=== PATIENT | female | born 1985 | race Caucasian/White ===

== ENCOUNTER 2017-09-14 13:40 | Inpatient (IN) ==
[2017-09-14] MEDS ORDERED: PANTOPRAZOLE 40 MG VIAL IV STA (14:18)
[2017-09-14] MEDS ORDERED: ONDANSETRON 4 MG/2 ML VIAL IV STA (14:18)
[2017-09-14] MEDS ORDERED: SODIUM CHLORIDE 0.9% 2,000 ML IV STA (14:18)
[2017-09-14] MEDS ORDERED: LOPERAMIDE 2 MG CAPSULE PO STA (14:18)
[2017-09-14] MEDS ORDERED: DICYCLOMINE 20 MG/2 ML AMP IM ONE ×2 (14:18→15:19)
[2017-09-14 15:10] LABS: Basophils % 0.3 % (0.0-0.8); Eosinophils % 0.7 % (0.00-10.9); Hematocrit 33.1 VOL% (35.7-47.0); Hemoglobin 11.1 GM/DL (12.0-16.0); Immature Granulocytes % 0.3 %; Immature Granulocytes Absolute 0.01 #; Lymphocytes # 0.8 10*3/uL (1.4-4.0); Lymphocytes % 28.8 % (21.3-54.2); Mean Corpuscular HGB Conc 33.5 GM/DL (32-36); Mean Corpuscular Hemoglobin 30 PG (27-34); Mean Corpuscular Volume 89.5 FL (87-102); Mean Platelet Volume 10.4 FL (9.6-12.0); Monocytes # 0.2 10*3/uL (0.11-0.8); Monocytes % 7.5 % (1.7-12.7); Neutrophils # 1.8 10*3/uL (1.4-7.4); Neutrophils % 62.4 % (38.7-73.9); Platelet Count 214 T/CUMM (130-400); Red Cell Distribution Width 12.8 % (9.3-17.3); White Blood Count 2.9 T/CUMM (4-12)
[2017-09-14] MEDS ORDERED: ONDANSETRON 4 MG/2 ML VIAL ONE (15:19)
[2017-09-14] MEDS ORDERED: LOPERAMIDE 2 MG CAPSULE ONE (15:19)
[2017-09-14] MEDS ORDERED: PANTOPRAZOLE 40 MG VIAL IV ONE (15:19)
[2017-09-14 15:20] LABS: INR 1.1; PT Patient Result 11.7 SECS; Partial Thromboplastin Time 25.9 SECS (0-40)
[2017-09-14 15:39] LABS: Alanine Aminotransferase 10 U/L (13-56); Albumin 3.6 G/DL (3.4-5.0); Alkaline Phosphatase 41 U/L (45-117); Amylase 47 U/L (25-115); Aspartate Amino Transferase 15 U/L (0-37); Blood Urea Nitrogen 15 MG/DL (7-18); Calcium 8.4 MG/DL (8.5-10.1); Glucose 98 MG/DL (74-106); Osmolality,Calculated 279.4 MOS/KG (273-304); Potassium 3.6 MMOL/L (3.5-5.1); Sodium 140 MMOL/L (136-145); Total Protein 6.4 G/DL (6.4-8.3); Troponin I Only < 0.015 NG/ML (0.00-0.045)
[2017-09-14 16:25] LABS: Apearance,Urine CLOUDY (Clear); Bilirubin,Urine Negative (Negative); Blood, Urine Negative (Negative); Glucose,Urine (UA) Negative (Negative); Ketones,Urine 20 mg/dL (Negative); Mucus,Urine Many /LPF (Occasional); Nitrite,Urine Negative (Negative); Protein,Urine 30 MG/DL; Squamous Epithelial Cell,Urine Occasional /HPF (0-10); Urine Color Dark yellow (Yellow); Urine Specific Gravity 1.033 (1.001-1.035); Urine Urobilinogen < 2.0 EU/DL (0.2-1.0); WBC,Urine 4 /HPF (0-6)
[2017-09-14] MEDS ORDERED: PROMETHAZINE 25 MG/1 ML VIAL IM PRN (20:52)
[2017-09-14] MEDS ORDERED: LOPERAMIDE 2 MG CAPSULE PO PRN (20:52)
[2017-09-14] MEDS ORDERED: ACETAMINOPHEN 325 MG TABLET PO PRN (20:52)
[2017-09-14] MEDS ORDERED: cloNIDine 0.1 MG TABLET PO PRN (20:52)
[2017-09-14] MEDS: SODIUM CHLORIDE 0.9% 1,000 ML IV SCH (20:55)
[2017-09-14] MEDS: tiZANidine 4 MG TABLET PO SCH (21:49)
[2017-09-14] MEDS: ZALEPLON 5 MG CAPSULE PO SCH ×2 (21:49→21:51)
[2017-09-14] MEDS: SERTRALINE 50 MG TABLET PO SCH (21:49)
[2017-09-14] MEDS: LEVOTHYROXINE 112 MCG TABLET PO SCH (21:49)
[2017-09-14] MEDS: ENOXAPARIN 40 MG/0.4 ML SYRINGE SUBCUT SCH (21:54)
[2017-09-14] MEDS: ONDANSETRON ODT 4 MG TABLET PO SCH (21:56)
[2017-09-14] MEDS ORDERED: SODIUM CHLORIDE 0.9% 500 ML IV ONE (22:28)
[2017-09-15] MEDS: ONDANSETRON ODT 4 MG TABLET PO SCH ×4 (03:02→21:37)
[2017-09-15] MEDS: ONDANSETRON 4 MG/2 ML VIAL IV PRN ×4 (04:04→21:30)
[2017-09-15] MEDS: SODIUM CHLORIDE 0.9% 1,000 ML IV SCH ×4 (05:08→21:32)
[2017-09-15] MEDS: DICYCLOMINE 20 MG TABLET PO PRN ×2 (05:30→10:25)
[2017-09-15 06:33] LABS: Basophils % 0.5 % (0.0-0.8); Eosinophils # 0.1 10*3/uL (0.0-0.87); Eosinophils % 2.3 % (0.00-10.9); Immature Granulocytes % 0.5 %; Immature Granulocytes Absolute 0.01 #; Lymphocytes # 0.8 10*3/uL (1.4-4.0); Lymphocytes % 36.2 % (21.3-54.2); Mean Corpuscular HGB Conc 33.3 GM/DL (32-36); Mean Corpuscular Hemoglobin 29 PG (27-34); Mean Platelet Volume 10.6 FL (9.6-12.0); Monocytes # 0.2 10*3/uL (0.11-0.8); Neutrophils # 1.1 10*3/uL (1.4-7.4); Neutrophils % 53.5 % (38.7-73.9); Platelet Count 170 T/CUMM (130-400); Red Blood Count 3.41 MC/CUMM (3.8-5.5); Red Cell Distribution Width 12.7 % (9.3-17.3); White Blood Count 2.1 T/CUMM (4-12)
[2017-09-15 06:54] LABS: Microcytosis 1+; Platelet Estimate Adequate
[2017-09-15 07:07] LABS: Alanine Aminotransferase < 9 U/L (13-56); Albumin 3.1 G/DL (3.4-5.0); Alkaline Phosphatase 35 U/L (45-117); Aspartate Amino Transferase 15 U/L (0-37); Blood Urea Nitrogen 11 MG/DL (7-18); Calcium 7.6 MG/DL (8.5-10.1); Glucose 90 MG/DL (74-106); Osmolality,Calculated 284.8 MOS/KG (273-304); Potassium 3.4 MMOL/L (3.5-5.1); Sodium 144 MMOL/L (136-145); Total Protein 5.3 G/DL (6.4-8.3)
[2017-09-15] MEDS: PANTOPRAZOLE 40 MG TABLET PO SCH (08:25)
[2017-09-15] MEDS: CARISOPRODOL 350 MG TABLET PO PRN ×2 (12:06→17:08)
[2017-09-15] MEDS: POTASSIUM CHLORIDE 20 MEQ TABLET PO PRN ×2 (17:08→17:09)
[2017-09-15] MEDS: ZALEPLON 5 MG CAPSULE PO SCH ×2 (21:16→21:27)
[2017-09-15] MEDS: SERTRALINE 50 MG TABLET PO SCH (21:27)
[2017-09-15] MEDS: LEVOTHYROXINE 112 MCG TABLET PO SCH (21:27)
[2017-09-15] MEDS: tiZANidine 4 MG TABLET PO SCH (21:27)
[2017-09-15] MEDS: ENOXAPARIN 40 MG/0.4 ML SYRINGE SUBCUT SCH (21:28)
[2017-09-16] MEDS: ONDANSETRON ODT 4 MG TABLET PO SCH ×2 (03:29→08:09)
[2017-09-16] MEDS: SODIUM CHLORIDE 0.9% 1,000 ML IV SCH ×3 (05:43→21:16)
[2017-09-16 06:27] LABS: Basophils % 0.4 % (0.0-0.8); Eosinophils # 0.1 10*3/uL (0.0-0.87); Eosinophils % 2.2 % (0.00-10.9); Hematocrit 30.2 VOL% (35.7-47.0); Immature Granulocytes % 0.4 %; Immature Granulocytes Absolute 0.01 #; Lymphocytes # 0.8 10*3/uL (1.4-4.0); Lymphocytes % 35.6 % (21.3-54.2); Mean Corpuscular HGB Conc 33.1 GM/DL (32-36); Mean Corpuscular Hemoglobin 30 PG (27-34); Mean Corpuscular Volume 89.1 FL (87-102); Mean Platelet Volume 10.8 FL (9.6-12.0); Monocytes # 0.2 10*3/uL (0.11-0.8); Monocytes % 7.6 % (1.7-12.7); Neutrophils # 1.2 10*3/uL (1.4-7.4); Neutrophils % 53.8 % (38.7-73.9); Platelet Count 189 T/CUMM (130-400); Red Blood Count 3.39 MC/CUMM (3.8-5.5); White Blood Count 2.3 T/CUMM (4-12)
[2017-09-16 06:57] LABS: Macrocytosis Slight
[2017-09-16 07:02] LABS: Calcium 7.6 MG/DL (8.5-10.1); Osmolality,Calculated 281.8 MOS/KG (273-304); Potassium 3.7 MMOL/L (3.5-5.1)
[2017-09-16] MEDS: ONDANSETRON 4 MG/2 ML VIAL IV PRN (08:09)
[2017-09-16] MEDS: PANTOPRAZOLE 40 MG TABLET PO SCH (08:09)
[2017-09-16] MEDS: CARISOPRODOL 350 MG TABLET PO PRN ×2 (11:39→16:08)
[2017-09-16] MEDS ORDERED: ONDANSETRON ODT 4 MG TABLET PO PRN (12:26)
[2017-09-16] MEDS: DICYCLOMINE 20 MG TABLET PO PRN (12:55)
[2017-09-16] MEDS: tiZANidine 4 MG TABLET PO SCH (21:13)
[2017-09-16] MEDS: LEVOTHYROXINE 112 MCG TABLET PO SCH (21:13)
[2017-09-16] MEDS: SERTRALINE 50 MG TABLET PO SCH (21:13)
[2017-09-16] MEDS: ZALEPLON 5 MG CAPSULE PO SCH (21:15)
[2017-09-16] MEDS: ENOXAPARIN 40 MG/0.4 ML SYRINGE SUBCUT SCH (21:15)
[2017-09-17] MEDS: SODIUM CHLORIDE 0.9% 1,000 ML IV SCH ×3 (03:52→22:12)
[2017-09-17 06:49] LABS: Basophils % 0.8 % (0.0-0.8); Eosinophils # 0.1 10*3/uL (0.0-0.87); Eosinophils % 2.5 % (0.00-10.9); Hematocrit 30.3 VOL% (35.7-47.0); Hemoglobin 10.4 GM/DL (12.0-16.0); Immature Granulocytes % 0.4 %; Immature Granulocytes Absolute 0.01 #; Lymphocytes # 0.8 10*3/uL (1.4-4.0); Lymphocytes % 32.4 % (21.3-54.2); Mean Corpuscular HGB Conc 34.3 GM/DL (32-36); Mean Corpuscular Hemoglobin 30 PG (27-34); Mean Corpuscular Volume 87.1 FL (87-102); Monocytes # 0.2 10*3/uL (0.11-0.8); Monocytes % 8.4 % (1.7-12.7); Neutrophils # 1.3 10*3/uL (1.4-7.4); Neutrophils % 55.5 % (38.7-73.9); Platelet Count 195 T/CUMM (130-400); Red Blood Count 3.48 MC/CUMM (3.8-5.5); Red Cell Distribution Width 13.1 % (9.3-17.3); White Blood Count 2.4 T/CUMM (4-12)
[2017-09-17 07:19] LABS: Calcium 7.9 MG/DL (8.5-10.1); Osmolality,Calculated 283.8 MOS/KG (273-304); Potassium 3.4 MMOL/L (3.5-5.1)
[2017-09-17] MEDS ORDERED: KETOROLAC 30 MG/1 ML VIAL IV ONE (07:23)
[2017-09-17 07:33] LABS: Anisocytosis Slight; Ovalocytes Slight
[2017-09-17 07:34] LABS: Macrocytosis Slight; Platelet Estimate Adequate
[2017-09-17 07:35] LABS: Hypochromasia Slight; Microcytosis Slight
[2017-09-17] MEDS: PANTOPRAZOLE 40 MG TABLET PO SCH ×3 (09:24→12:56)
[2017-09-17] MEDS ORDERED: ONDANSETRON 4 MG/2 ML VIAL ONE (10:43)
[2017-09-17] MEDS ORDERED: ONDANSETRON 4 MG/2 ML VIAL IV ONE (10:45)
[2017-09-17] MEDS: POTASSIUM CHLORIDE 20 MEQ TABLET PO PRN ×3 (12:23→16:45)
[2017-09-17] MEDS: DICYCLOMINE 20 MG TABLET PO PRN (12:23)
[2017-09-17] MEDS: CARISOPRODOL 350 MG TABLET PO PRN ×2 (12:28→16:50)
[2017-09-17] MEDS: PROMETHAZINE 25 MG TABLET PO PRN ×2 (14:35→22:13)
[2017-09-17] MEDS ORDERED: PROPOFOL 200 MG/20 ML VIAL IV ONE (15:24)
[2017-09-17] MEDS ORDERED: LIDOCAINE 1% 5 ML VIAL ONE (15:24)
[2017-09-17] MEDS: ENOXAPARIN 40 MG/0.4 ML SYRINGE SUBCUT SCH (21:10)
[2017-09-17] MEDS: SERTRALINE 50 MG TABLET PO SCH (22:12)
[2017-09-17] MEDS: LEVOTHYROXINE 112 MCG TABLET PO SCH (22:13)
[2017-09-17] MEDS: ZALEPLON 5 MG CAPSULE PO SCH (22:13)
[2017-09-17] MEDS: tiZANidine 4 MG TABLET PO SCH (22:13)
[2017-09-18] MEDS ORDERED: CLINDAMYCIN INJ 900 MG in PREMIX 1 EACH IV ONE (06:00)
[2017-09-18] MEDS: PANTOPRAZOLE 40 MG TABLET PO SCH ×2 (06:11→09:10)
[2017-09-18] MEDS ORDERED: LIDOCAINE 1%/EPI INJ 20 ML VIAL ONE (06:17)
[2017-09-18] MEDS ORDERED: TISSUE ADHESIVE 1 EACH APPLICATOR TOP ONE (06:17)
[2017-09-18] MEDS ORDERED: BUPIVACAINE 0.25% 50 ML VIAL ONE (06:17)
[2017-09-18] MEDS ORDERED: SCOPOLAMINE 1.5 MG PATCH TRANSDERM ONE (06:31)
[2017-09-18 06:39] LABS: Basophils % 0.3 % (0.0-0.8); Hematocrit 34.6 VOL% (35.7-47.0); Hemoglobin 11.3 GM/DL (12.0-16.0); Immature Granulocytes % 0.3 %; Immature Granulocytes Absolute 0.01 #; Lymphocytes # 1.1 10*3/uL (1.4-4.0); Lymphocytes % 28.4 % (21.3-54.2); Mean Corpuscular HGB Conc 32.7 GM/DL (32-36); Mean Corpuscular Hemoglobin 30 PG (27-34); Mean Corpuscular Volume 90.8 FL (87-102); Mean Platelet Volume 11.1 FL (9.6-12.0); Monocytes # 0.2 10*3/uL (0.11-0.8); Monocytes % 5.7 % (1.7-12.7); Neutrophils # 2.5 10*3/uL (1.4-7.4); Neutrophils % 64.3 % (38.7-73.9); Platelet Count 231 T/CUMM (130-400); Red Blood Count 3.81 MC/CUMM (3.8-5.5); Red Cell Distribution Width 13.3 % (9.3-17.3); White Blood Count 3.9 T/CUMM (4-12)
[2017-09-18 07:06] LABS: Potassium 3.3 MMOL/L (3.5-5.1)
[2017-09-18] MEDS ORDERED: SUGAMMADEX 200 MG/2 ML VIAL IV ONE (07:23)
[2017-09-18] MEDS ORDERED: PROPOFOL 200 MG/20 ML VIAL IV ONE (07:58)
[2017-09-18] MEDS ORDERED: MIDAZOLAM 2 MG/2 ML VIAL ONE (07:59)
[2017-09-18] MEDS ORDERED: DEXAMETHASONE 10 MG/1 ML VIAL ONE (07:59)
[2017-09-18] MEDS ORDERED: ACETAMINOPHEN 1,000 MG/100 ML VIAL IV ONE (07:59)
[2017-09-18] MEDS ORDERED: SEVOFLURANE 1 UNIT/15 MINUTE INH ONE (07:59)
[2017-09-18] MEDS ORDERED: ONDANSETRON 4 MG/2 ML VIAL ONE (07:59)
[2017-09-18] MEDS ORDERED: SUCCINYLCHOLINE 200 MG/10 ML VIAL ONE (08:00)
[2017-09-18] MEDS ORDERED: ROCURONIUM 100 MG/10 ML VIAL IV ONE (08:00)
[2017-09-18] MEDS ORDERED: PROMETHAZINE 25 MG/1 ML VIAL ONE (08:00)
[2017-09-18] MEDS: CARISOPRODOL 350 MG TABLET PO PRN ×2 (09:26→16:08)
[2017-09-18] MEDS: DICYCLOMINE 20 MG TABLET PO PRN (09:27)
[2017-09-18] MEDS: SODIUM CHLORIDE 0.9% 1,000 ML IV SCH ×2 (11:05→12:31)
[2017-09-18] MEDS ORDERED: MORPHINE 2 MG/1 ML SYRINGE IV ONE (12:28)
[2017-09-18] MEDS: POTASSIUM CHLORIDE 20 MEQ TABLET PO PRN ×2 (12:31→16:08)
[2017-09-18] MEDS: PROMETHAZINE 25 MG TABLET PO PRN (12:31)
[2017-09-18 17:11] VITALS: BP 104/67
== END 2017-09-18 19:19 | disposition home or self-care (01) | DRG 419 ==
LOC: N.ED 13:40 → N.EDINP 13:40 → SUATTDRO 19:05 → N.5E 20:06
PROVIDERS: ADMIT Family Medicine; ATTEND Internal Medicine
PROC: LAPCHOL (2017-09-18 07:50)